=== PATIENT | male | born 1960 | race Two or more races ===

== ENCOUNTER 2022-07-18 15:27 | Emergency (ER) | payer OTHER ==
[~2022-07-18] VITALS: Ht 172.7 cm; Wt 72.6 kg
[2022-07-18] MEDS ORDERED: METF-442 PO (15:51)
[2022-07-18] MEDS ORDERED: METFORMIN 500 MG TABLET ONE (15:53)
[2022-07-18] MEDS ORDERED: METFORMIN 500 MG TABLET PO ONE (16:00)
--- NOTE | 2022-07-18 16:00 | NUR ---
metformin po given as indicated, shaka well.
--- NOTE | 2022-07-18 16:02 | NUR ---
Patient discharged to law enforcement in stable condition, medically-cleared for booking, accompanied by 2 [address]ne. Written and verbal after care instructions given. Patient verbalizes understanding of instruction. Signed by kristin urrutia #[id number]
[2022-07-18 16:03] VITALS: BP 115/63
== END 2022-07-18 16:03 ==
LOC: ER 15:27
DX: E11.65 Type 2 diabetes mellitus with hyperglycemia (principal)
CPT/HCPCS: 82962-TC